=== PATIENT | male | born 1980 | race Caucasian/White ===

== ENCOUNTER 2017-01-26 23:04 | Emergency (ER) | payer OTHER ==
[~2017-01-26] VITALS: Ht 175.3 cm; Wt 67.3 kg
[~2017-01-26 23:04] MED LIST: ADVIL,NUPRIN,M200 MG PO; ALBUTEROL SULF8.5 GM IH; CLEOCIN300 MG PO; INDOCIN50 MG PO; MOBIC15 MG PO; NAPROSYN500 MG PO; PERCOCET 5/31 TABLET PO; ROBITUSSIN AC,T10 ML PO; TESSALON PERLE100 MG PO; ZITHROMAX TRI-500 MG PO; ZITHROMAX250 MG PO; ZYRTEC10 M3 PO
[2017-01-26] MEDS ORDERED: ULTRAM50 MG PO (23:59)
[2017-01-27 00:25] VITALS: BP 110/76
== END 2017-01-27 00:42 | disposition home or self-care (01) ==
LOC: EME 23:04
DX: K02.9 Dental caries, unspecified (principal); F17.200 Nicotine dependence, unspecified, uncomplicated; F10.10 Alcohol abuse, uncomplicated; F12.90 Cannabis use, unspecified, uncomplicated
CPT/HCPCS: 99281; 99283

== ENCOUNTER 2017-01-29 13:07 | Emergency (ER) | payer OTHER ==
[~2017-01-29] VITALS: Ht 175.3 cm; Wt 67.7 kg
[~2017-01-29 13:07] MED LIST changes: +ULTRAM50 MG PO
[2017-01-29] MEDS ORDERED: MOTRIN800 MG PO (13:25)
[2017-01-29] MEDS ORDERED: CLEOCIN300 MG PO (13:25)
[2017-01-29] MEDS ORDERED: ULTRAM50 MG PO (13:25)
[2017-01-29 13:58] VITALS: BP 127/85
== END 2017-01-29 13:59 | disposition home or self-care (01) ==
LOC: EXP 13:07 → EME 13:07 → EXP 13:59
DX: K02.9 Dental caries, unspecified (principal); K03.81 Cracked tooth; F17.200 Nicotine dependence, unspecified, uncomplicated
CPT/HCPCS: 99281; 99282

== ENCOUNTER 2017-09-22 16:53 | Emergency (ER) | payer OTHER ==
[~2017-09-22] VITALS: Ht 175.3 cm; Wt 60.4 kg
[~2017-09-22 16:53] MED LIST changes: +MOTRIN800 MG PO
[2017-09-22 16:57] VITALS: BP 108/66
== END 2017-09-22 17:20 | disposition left against medical advice (07) ==
LOC: EME 16:53
DX: R44.3 Hallucinations, unspecified (principal)

== ENCOUNTER 2018-03-24 16:34 | Emergency (ER) | payer OTHER ==
[~2018-03-24] VITALS: Ht 175.3 cm; Wt 62.9 kg
[2018-03-24 17:59] LABS: HEMATOCRIT 44.5 % (38.0-50.0); HEMOGLOBIN 15.3 G/DL (12.5-16.6); MCH 31.3 PG (29.0-34.0); MCHC 34.4 G/DL (30.0-36.0); PLATELET COUNT 281 K/uL (156-360); RBC DIS.WIDTH-CV 14.2 % (11.8-14.6); RBC DIS.WIDTH-SD 47.5 % (39-53); RED BLOOD COUNT 4.89 M/uL (4.00-5.50); WHITE BLOOD COUNT 9.5 K/uL (4.1-10.2)
[2018-03-24 18:11] LABS: CHLORIDE 105 mEq/L (99-109); POTASSIUM 3.8 mEq/L (3.7-5.4); SODIUM 139 mEq/L (136-147)
[2018-03-24 18:13] LABS: GLUCOSE 103 mg/dL (70-99)
[2018-03-24 18:16] LABS: CREATININE 0.9 mg/dL (0.6-1.3); GFR ESTIMATE (CALCULATED) > 59 mL/min/ (58.99-99999)
[2018-03-24 18:17] LABS: UREA NITROGEN (BUN) 13 mg/dL (9-23)
[2018-03-24 18:21] LABS: TROP-I INTERPRETATION NEGATIVE; TROPONIN-I < 0.01 ng/mL (0.0-0.30)
[2018-03-24 20:25] LABS: TROP-I INTERPRETATION NEGATIVE; TROPONIN-I < 0.01 ng/mL (0.0-0.30)
[2018-03-24 20:27] LABS: APPEARANCE SL.HAZY ((CLEAR)); BILIRUBIN NEGATIVE; BLOOD NEGATIVE; COLOR YELLOW ((YELLOW)); GLUCOSE (STRIP) NEGATIVE; KETONES 20; LEUKOCYTES NEGATIVE; NITRITE NEGATIVE; PROTEIN (STRIP) 30; SPECIFIC GRAVITY 1.021 (1.000-1.030); UROBILINOGEN 0.2 MG/DL (0.2-1.0)
[2018-03-24 21:10] LABS: BACTERIA NONE SEEN /HPF; EPITHELIAL CELLS RARE /HPF; MUCUS 2+ /LPF; RED BLOOD CELLS 0-5 /HPF (0-5); WHITE BLOOD CELLS 0-5 /HPF (0-5)
[2018-03-24 21:11] LABS: AMORPHOUS URATES CRYSTALS 2+
[2018-03-24] MEDS ORDERED: VENTOLIN HFA18 GM IH (21:32)
[2018-03-24] MEDS ORDERED: PREDNISONE20 MG PO (21:32)
[2018-03-24 21:39] VITALS: BP 104/74
== END 2018-03-24 21:53 | disposition home or self-care (01) ==
LOC: RME 16:34 → EME 16:34 → RME 21:53
PROVIDERS: Physician Assistant
DX: J98.01 Acute bronchospasm (principal); R09.1 Pleurisy; F17.210 Nicotine dependence, cigarettes, uncomplicated; F12.90 Cannabis use, unspecified, uncomplicated; R00.1 Bradycardia, unspecified
CPT/HCPCS: 71046; 80048; 81003; 84484; 85027; 93005; 94640; 94664; 99281; 99284; J7512